=== PATIENT | female | born 1960 | race Caucasian/White ===

== ENCOUNTER 2023-12-12 17:09 | Emergency (ER) | payer OTHER ==
[2023-12-12 17:15] VITALS: BP 131/78; PULSE 73; RESP 18; TEMP 98.1; BMI 25.8
[2023-12-12] MEDS ORDERED: LIDOCAINE HCL 1%, 10 MG/ML (20ML VIAL) ONE (17:36)
[2023-12-12] MEDS: LIDOCAINE HCL 1%, 10 MG/ML (50 mL VIAL) PNB ONE (17:40)
== END 2023-12-12 19:24 | disposition home or self-care (01) ==
LOC: FER 17:09
PROC: 0QSQXZZ Reposition Right Toe Phalanx, External Approach (ICD-10-PCS; principal; 2023-12-12)
DX: S93.114A Dislocation of interphalangeal joint of right lesser toe(s), initial encounter (principal); W23.1XXA Caught, crushed, jammed, or pinched between stationary objects, initial encounter
CPT/HCPCS: 73660-TC-FY; 99284-25